=== PATIENT | female | born 1975 | race Caucasian/White ===

== ENCOUNTER 2017-08-08 16:56 | Emergency (ER) | payer BC ==
--- NOTE | 2017-08-08 20:15 | UC ---
Complaint Female HPI - HPI Summary HPI Summary: Patient urgent care this evening with 3 days of urinary pain and burning no fevers chills night sweats back pain - History Of Current Complaint Chief Complaint: UCGU Stated Complaint: URINARY COMPLAINT Time Seen by Provider: 08/08/17 20:30 Hx Obtained From: Patient ?: No Onset/Duration: Sudden Onset, Lasting Days - 3, Still Present Timing: Constant Severity Initially: Mild Severity Currently: Mild Character: Burning Aggravating Factor(s): Urination Alleviating Factor(s): Position Associated Signs And Symptoms: Positive: Negative - Allergies/Home Medications Allergies/Adverse Reactions: Allergies Allergy/AdvReac Type Severity Reaction Status Date / Time No Known Allergies Allergy Verified 11/12/13 12:48 PMH/Surg Hx/FS Hx/Imm Hx Previously Healthy: Yes - Surgical History Surgical History: Unable to Obtain/Confirm - Family History Known Family History: Positive: None - Social History Occupation: Unemployed Lives: With Family Alcohol Use: None Substance Use Type: None Smoking Status (MU): Never Smoked Tobacco Review of Systems Constitutional: Negative Skin: Negative Eyes: Negative ENT: Negative Respiratory: Negative Cardiovascular: Negative Gastrointestinal: Negative Genitourinary: Dysuria, Frequency, Urgency Motor: Negative Neurovascular: Negative Musculoskeletal: Negative Neurological: Negative Psychological: Negative Is Patient Immunocompromised?: No All Other Systems Reviewed And Are Negative: Yes Physical Exam Triage Information Reviewed: Yes Appearance: Well-Appearing, No Pain Distress, Well-Nourished Vital Signs Reviewed: Yes Eye Exam: Normal Eyes: Positive: Conjunctiva Clear ENT Exam: Normal ENT: Positive: Normal ENT inspection, Hearing grossly normal. Negative: Trismus , Muffled voice, Hoarse voice Dental Exam: Normal Neck exam: Normal Neck: Positive: Supple, Nontender Respiratory Exam: Normal Respiratory: Positive: Chest non-tender, No respiratory distress, No accessory muscle use Cardiovascular Exam: Normal Cardiovascular: Positive: RRR, Pulses Normal, Brisk Capillary Refill Abdominal Exam: Normal Abdomen Description: Positive: No Organomegaly, Soft, Other: - Suprapubic discomfort. Negative: CVA Tenderness (R), CVA Tenderness (L) Bowel Sounds: Positive: Present Musculoskeletal Exam: Normal Musculoskeletal: Positive: Strength Intact, ROM Intact, No Edema Neurological Exam: Normal Neurological: Positive: Alert, Muscle Tone Normal Psychological Exam: Normal Skin Exam: Normal Diagnostics - Laboratory Diagnostic Studies Completed/Ordered: UA trace leukoesterase Complaint Female Dx - Course Course Of Treatment: We'll culture urine, start Macrobid 100 mg by mouth twice a day increase fluids follow up with PCP - Differential Dx/Diagnosis Provider Diagnoses: Dysuria, urinary tract infection Discharge - Sign-Out/Discharge Documenting (check all that apply): Discharge - Discharge Plan Condition: Stable Disposition: HOME Prescriptions: Nitrofurantoin Macrocrystals* [Macrodantin*] 100 mg PO BID #20 cap Patient Education Materials: Yeast Infection (ED), Dysuria (ED) Referrals: Hector Vang MD [Primary Care Provider] - If Needed - Billing Disposition and Condition Condition: STABLE Disposition: HOME
[2017-08-08 20:30] VITALS: BP 113/73
== END 2017-08-08 20:55 | disposition home or self-care (01) ==
LOC: UCCORT 16:56
DX: N39.0 Urinary tract infection, site not specified (principal)
CPT/HCPCS: 81003; 87086; 99212; G0463